=== PATIENT | male | born 1945 | race Caucasian/White ===

== ENCOUNTER 2020-10-25 11:03 | Inpatient (IN) | payer MEDICARE ==
[~2020-10-25] VITALS: Ht 172.7 cm; Wt 72.6 kg
--- NOTE | 2020-10-25 11:18 | NUR ---
pt newly started on 5 different medication to be completed in a course of time, but unable to provided more details at this point.
[2020-10-25] MEDS ORDERED: ALLO300T2 PO (11:20)
[2020-10-25] MEDS ORDERED: AMLO10TA59 PO (11:20)
--- NOTE | 2020-10-25 11:21 | NUR ---
CALLED DR. NAOMI OCHOA OFFICE, , PER PT REQUEST TO GET THE MEDS LIST. THE CORPORATE STRATEGY ANALYST SAID THAT SHE WILL FAX THE LIST, WILL UPDATE THE MED RECONCILIATION ONCE RECIEVE THE LIST.
[2020-10-25] MEDS ORDERED: ONDANSETRON 4 MG/2 ML VIAL ONE (11:28)
[2020-10-25] MEDS ORDERED: HYDROMORPHONE 1 MG/1 ML DISP.SYRIN ONE (11:28)
[2020-10-25] MEDS ORDERED: ONDANSETRON 4 MG/2 ML VIAL IV ONE (11:30)
[2020-10-25] MEDS ORDERED: HYDROMORPHONE 1 MG/1 ML DISP.SYRIN IV ONE (11:30)
[2020-10-25] MEDS ORDERED: IV NORMAL SALINE 1000 ML BAG IV ONE (11:30)
[2020-10-25 11:43] LABS: HEMATOCRIT 25.8 % (36.7-47.1); MEAN CORPUSCULAR HEMOGLOBIN 29.8 uug (23.8-33.4); MEAN CORPUSCULAR VOLUME 94.5 fL (73.0-96.2); PLATELET COUNT (AUTO) 270 K/uL (152-348)
[2020-10-25 11:56] LABS: ALKALINE PHOSPHATASE 110 U/L (50-136); ASPARTATE AMINOTRANSFERASE 17 U/L (15-37); BILIRUBIN,DIRECT 0.3 mg/dL (0.0-0.2); BILIRUBIN,TOTAL 0.6 mg/dL (0.2-1.0); CARBON DIOXIDE 15 mmol/L (21-32); CHLORIDE 109 mmol/L (98-107); CREATININE 1.7 mg/dL (0.6-1.3); GLUCOSE 108 mg/dL (74-106); LIPASE 154 U/L (73-393); TOTAL PROTEIN, SERUM 5.7 g/dL (6.4-8.2); UREA NITROGEN, BLOOD 41 mg/dL (7-18)
--- NOTE | 2020-10-25 12:06 | NUR ---
Patient is resting comfortably on gurney with eyes closed. PATIENT IS PAIN FREE AT THIS TIME.
[2020-10-25 12:09] LABS: ALANINE AMINOTRANSFERASE < 6 U/L (16-63)
[2020-10-25] MEDS ORDERED: CALCIUM GLUCONATE IV 1 GM in IV NORMAL SALINE 100 ML IV ONE (12:15)
--- NOTE | 2020-10-25 12:35 | NUR ---
Patient denies being homeless. New shirt provided per patient's request.
--- NOTE | 2020-10-25 12:37 | NUR ---
Pending callback from FATOU Linares for SBAR. Patient is admitted to 3rd floor telemetry room 310, under the care of Dr. Phillips. Belongings list completed.
[2020-10-25] MEDS ORDERED: ACETAMINOPHEN 325 MG TABLET PO PRN (13:15)
[2020-10-25] MEDS ORDERED: MAGNESIUM HYDROXIDE 30 ML LIQUID UDC PO PRN ×2 (13:15→13:30)
[2020-10-25] MEDS ORDERED: ONDANSETRON 4 MG/2 ML VIAL IV PRN ×2 (13:15→13:30)
[2020-10-25] MEDS ORDERED: IV 1/2NS 1000 ML 1,000 ML IV SCH (13:15)
[2020-10-25] MEDS ORDERED: Z GUARD REMEDY PASTE 57 GM TUBE TOP PRN (13:15)
--- NOTE | 2020-10-25 13:45 | NUR ---
ADMITTED FROM ER A 75 YO MALE WITH ADM DX OF HYCALEMIA AWAKE ALERT AND ORIENTED X3 WITH SLIGHT SOB ON EXERTION, MILD GENERALIZED PAIN. ROUTINE ADM ASSESSMENT INITIATED. DR LICEA MADE AWARE OF ADM STATUS WITH ORDERS. LUNCH SERVED ABLE TO CONSUME 100% OF FOOD
[2020-10-25 13:51] VITALS: BP 120/52
[2020-10-25] MEDS: IV 1/2NS 1000 ML 1,000 ML IV SCH ×2 (13:56→23:12)
[2020-10-25 15:30] VITALS: BP 121/60
[2020-10-25 18:39] LABS: *BLOOD, URINE NEGATIVE (NEGATIVE); *CLARITY,URINE CLEAR (CLEAR); *COLOR,URINE YELLOW (YELLOW); *KETONES,URINE NEGATIVE (NEGATIVE); *UROBILINOGEN,URINE 0.2 E.U./dl (NORMAL); LEUKOCYTE ESTERASE ,URINE NEGATIVE (NEGATIVE); NITRITE, URINE NEGATIVE (NEGATIVE); PH,URINE 5.5 (5.0-8.0); UGLUCOSE NEGATIVE (NEGATIVE)
[2020-10-25 18:41] LABS: *BILIRUBIN,URIN 1+ (NEGATIVE)
[2020-10-25 18:50] LABS: BACTERIA,URINE NONE SEEN /HPF (NONE SEEN); RBC,URINE 0-3 /HPF (0-3); SQUAMOUS EPITHELIAL CELL,UR NONE SEEN /HPF (NONE SEEN); URINE AMORPHOUS URATE FEW /HPF; WBC,URINE 0-3 /HPF (0-3)
--- NOTE | 2020-10-25 19:00 | NUR ---
Patient report received. Patient is alert and oriented x 3-4. No complaints of pain at this time. Skin is intact, no signs of breakdown at this time. Patient is on TELE, sinus rhythm at this time. Stated that he has shortness of breath when transferring but not on rest. Oxygen saturation between 92-94% on 2L NC. Patient is continent. Left forearm 20g running 1/2 NS at 100cc/hr. No signs of distress at this time. Bed in low and locked position. Call light within reach.
[2020-10-25 20:24] VITALS: BP 115/58
[2020-10-25] MEDS: ACETAMINOPHEN 325 MG TABLET PO PRN (20:43)
[2020-10-26 00:04] VITALS: BP 120/58
[2020-10-26 04:20] VITALS: BP 137/67
--- NOTE | 2020-10-26 05:59 | NUR ---
Patient slept intermittently. Awake, alert and oriented x 4. Patient complained of shortness of breath in the morning. Assisted the patient into high fowlers position, and increased oxygen to 3L. Patient stated relief of SOB. No other complaints noted. Patient denies any pain at this time. Medications given as ordered. Bed in low and locked position. Call light within reach.
[2020-10-26] MEDS: PANTOPRAZOLE SODIUM 40 MG TABLET.DR PO SCH (06:19)
[2020-10-26] MEDS ORDERED: PANTOPRAZOLE SODIUM 40 MG TABLET.DR PO SCH (07:00)
[2020-10-26] MEDS: IV 1/2NS 1000 ML 1,000 ML IV SCH ×2 (08:51→20:07)
[2020-10-26 10:34] LABS: *BILIRUBIN,URIN NEGATIVE (NEGATIVE); *BLOOD, URINE NEGATIVE (NEGATIVE); *CLARITY,URINE CLEAR (CLEAR); *COLOR,URINE YELLOW (YELLOW); *KETONES,URINE NEGATIVE (NEGATIVE); LEUKOCYTE ESTERASE ,URINE NEGATIVE (NEGATIVE); NITRITE, URINE NEGATIVE (NEGATIVE); PH,URINE 5.5 (5.0-8.0); UGLUCOSE NEGATIVE (NEGATIVE)
[2020-10-26 10:46] LABS: *CREATININE,URINE 79.8 mg/dL (30-125); *URINE TOTAL PROTEIN RANDOM 40.8 mg/dL (<150/24HR)
[2020-10-26] MEDS: HYDROCODONE/APAP 5-325MG TABLET PO PRN ×2 (11:55→22:32)
[2020-10-26 12:00] VITALS: BP 131/68
[2020-10-26 14:03] LABS: BACTERIA,URINE NONE SEEN /HPF (NONE SEEN); RBC,URINE 0-3 /HPF (0-3); SQUAMOUS EPITHELIAL CELL,UR FEW /HPF (NONE SEEN); URINE AMORPHOUS URATE FEW /HPF; WBC,URINE 0-3 /HPF (0-3)
[2020-10-26 16:01] VITALS: BP 138/73
--- NOTE | 2020-10-26 20:00 | NUR ---
RECEIVED PATIENT AWAKE IN BED. A/O X4. ON O2 3L NC SATING 97%. NO RESP.DISTRESS NOTED. DENIES ANY PAIN AT THIS TIME. IVF INFUSING WELL TO LEFT FA. BED ALARM ON. CALL LIGHT IN REACH. ALL NEEDS ATTENDED.
[2020-10-26 20:05] VITALS: BP 134/69
--- NOTE | 2020-10-26 22:30 | NUR ---
PATIENT AWAKE IN BED. VERY SOB. CALLED OUT TO WOOD FINISHER APPRENTICE COOLER MAN FOR FURTHER ORDERS. PATIENT GIVEN BREATHING TX.
[2020-10-26] MEDS: ALBUTEROL SULFATE 2.5 MG/3 ML NEBU NEB PRN (23:11)
[2020-10-27] VITALS: BP 122/64
[2020-10-27] MEDS ORDERED: methylPREDNISolone SOD SUCC 40 MG/ML VIAL IV ONE (02:15)
--- NOTE | 2020-10-27 02:30 | NUR ---
CALLED OUT TO LEVI ZAMORA NP TO INFORM THAT PATIENT IS UNABLE TO URINATE AND RECEIVED 293cc OF URINE. PATIENT IS SOB AND APPEARS UNCOMFORTABLE. RECEIVED ORDER FOR INSERTION OF F/C AND SOLU-MEDROL IVP. ALL NEEDS ATTENDED. WILL CONTINUE TO MONITOR.
[2020-10-27] MEDS: IV 1/2NS 1000 ML 1,000 ML IV PRN (02:59)
--- NOTE | 2020-10-27 03:35 | NUR ---
LUIS ARMANDO SIMS NOTIFIED THAT MATTA CATHETER IS UNABLE TO BE INSERTED. GIRLS TENNIS COACH AT BEDSIDE TO ATTEMPT CAUDE ORDERED. RESISTANCE NOTED. RECEIVED ORDER TO HAVE DAY SHIFT NOTIFY LUIS ARMANDO JACKSON TO CALL UROLOGIST COME TO INSERT MATTA. WILL CONTINUE TO MONITOR AND ASSESS.
[2020-10-27 04:00] VITALS: BP 145/76
--- NOTE | 2020-10-27 04:50 | NUR ---
PATIENT AWAKE IN BED. URINATED BY HIMSELF. LARGE AMOUNT OF URINE NOTED IN BED AND PATIENT URINATED IN URINAL. ALL NEEDS ATTENDED. WILL CONTINUE TO MONITOR AND ASSESS.
[2020-10-27] MEDS: PANTOPRAZOLE SODIUM 40 MG TABLET.DR PO SCH (06:06)
--- NOTE | 2020-10-27 06:48 | NUR ---
PATIENT ON SR.
[2020-10-27 06:51] LABS: HEMATOCRIT 27.1 % (36.7-47.1); MEAN CORPUSCULAR HEMOGLOBIN 30.2 uug (23.8-33.4); MEAN CORPUSCULAR VOLUME 95.2 fL (73.0-96.2); PLATELET COUNT (AUTO) 270 K/uL (152-348)
[2020-10-27 06:53] LABS: ALKALINE PHOSPHATASE 130 U/L (50-136); ASPARTATE AMINOTRANSFERASE 21 U/L (15-37); BILIRUBIN,TOTAL 0.7 mg/dL (0.2-1.0); CARBON DIOXIDE 11 mmol/L (21-32); CHLORIDE 106 mmol/L (98-107); CREATINE KINASE, TOTAL 88 U/L (39-308); CREATININE 1.4 mg/dL (0.6-1.3); GLUCOSE 87 mg/dL (74-106); MAGNESIUM 1.8 mg/dL (1.8-2.4); PHOSPHOROUS 2.4 mg/dL (2.5-4.9); UREA NITROGEN, BLOOD 33 mg/dL (7-18)
[2020-10-27 07:04] LABS: ALANINE AMINOTRANSFERASE < 6 U/L (16-63)
--- NOTE | 2020-10-27 07:41 | NUR ---
pt calcium level is 5.4 reported by lab made aware
[2020-10-27 07:57] VITALS: BP 141/71
[2020-10-27] MEDS: CALCIUM CARBONATE 500 MG TABLET PO SCH ×2 (09:30→21:18)
[2020-10-27] MEDS: CALCITRIOL 0.25 MCG CAPSULE PO SCH (10:11)
[2020-10-27] MEDS: ALBUTEROL SULFATE 2.5 MG/3 ML NEBU NEB PRN (10:23)
[2020-10-27 12:51] VITALS: BP 138/64
[2020-10-27] MEDS ORDERED: NEUTRA PHOS PACKET PO ONE (15:30)
[2020-10-27 16:00] VITALS: BP 134/74
[2020-10-27] MEDS: ALBUTEROL SULFATE 2.5 MG/3 ML NEBU NEB SCH ×2 (17:46→22:33)
[2020-10-27] MEDS: methylPREDNISolone SOD SUCC 125 MG/2 ML VIAL IV SCH ×2 (17:49→21:28)
--- NOTE | 2020-10-27 19:30 | NUR ---
Received pt in bed, awake and verbally responsive. Denies pain or discomfort. On oxygen at 3LPM, saturating 98%. IVF infusing well on left forearm. Safety measures initiated, call light within reach.
[2020-10-27 20:00] VITALS: BP 120/53
[2020-10-28] VITALS: BP 142/67
[2020-10-28] MEDS: IV 1/2NS 1000 ML 1,000 ML IV PRN ×2 (00:02→22:39)
[2020-10-28] MEDS: ACETAMINOPHEN 325 MG TABLET PO PRN ×2 (00:06→19:49)
[2020-10-28] MEDS: ALBUTEROL SULFATE 2.5 MG/3 ML NEBU NEB SCH ×6 (02:54→23:15)
--- NOTE | 2020-10-28 03:10 | NUR ---
Pt has a urine output of 100 ml only and has wheezing on bilateral lungs. Repositioning done as needed, scheduled breathing treatment administered by RT. Pt still wheezing. Notified Dian Boyd NP of pt's condition. Received new orders: Administer 0600 am dose of Solumedrol 60mg IVP now and hold 060 am dose, chest xray at 0700 and a pulmonary consult. Orders carried out. will continue to monitor. Addendum: 10/28/20 at 0346 by ZOYA DIAMOND RN Additional information: Bladder scan done as well, showed 139 ml. Notified Oliver prior to receiving new orders.
[2020-10-28] MEDS: methylPREDNISolone SOD SUCC 125 MG/2 ML VIAL IV SCH ×3 (03:23→21:00)
[2020-10-28 04:00] VITALS: BP 138/69
[2020-10-28] MEDS: PANTOPRAZOLE SODIUM 40 MG TABLET.DR PO SCH (06:06)
--- NOTE | 2020-10-28 07:10 | NUR ---
Tolerated medications well. Still wheezing on bilateral lungs. Endorsed to day shift nurse regarding new orders: chest xray, pulmonary and urology consult. Safety measures maintained at all times. All needs attended and met.
[2020-10-28 07:19] LABS: HEMATOCRIT 27.2 % (36.7-47.1); MEAN CORPUSCULAR HEMOGLOBIN 30.2 uug (23.8-33.4); MEAN CORPUSCULAR VOLUME 99.3 fL (73.0-96.2); PLATELET COUNT (AUTO) 301 K/uL (152-348)
[2020-10-28 07:44] LABS: ALANINE AMINOTRANSFERASE 7 U/L (16-63); ALKALINE PHOSPHATASE 134 U/L (50-136); ASPARTATE AMINOTRANSFERASE 16 U/L (15-37); BILIRUBIN,TOTAL 0.4 mg/dL (0.2-1.0); CARBON DIOXIDE 13 mmol/L (21-32); CHLORIDE 107 mmol/L (98-107); CREATINE KINASE, TOTAL 91 U/L (39-308); CREATININE 1.7 mg/dL (0.6-1.3); GLUCOSE 170 mg/dL (74-106); MAGNESIUM 2.1 mg/dL (1.8-2.4); PHOSPHOROUS 3.8 mg/dL (2.5-4.9); POTASSIUM 5.6 mmol/L (3.5-5.1); TOTAL PROTEIN, SERUM 6.2 g/dL (6.4-8.2)
[2020-10-28 07:54] LABS: UREA NITROGEN, BLOOD 40 mg/dL (7-18)
[2020-10-28] MEDS: CALCIUM CARBONATE 500 MG TABLET PO SCH ×2 (08:09→20:01)
[2020-10-28] MEDS: CALCITRIOL 0.25 MCG CAPSULE PO SCH (08:09)
[2020-10-28] MEDS ORDERED: FUROSEMIDE 40 MG/4 ML VIAL IV ONE (09:30)
[2020-10-28] MEDS ORDERED: SODIUM POLYSTYRENE SULFONATE 15 G/60 ML LIQUID UDC PO ONE (09:30)
--- NOTE | 2020-10-28 09:40 | NUR ---
pt is unable to urinate .bladder scan done it show 265 ml urine his hr went up to 133 md notified and recheck his vs are 98 temp pulse is 133 resp 24 and o2% is 95 on 3 l nc
[2020-10-28 09:51] VITALS: BP 137/76
[2020-10-28] MEDS ORDERED: CALCIUM GLUCONATE IV 1 GM in IV NORMAL SALINE 100 ML IV ONE (10:00)
[2020-10-28] MEDS ORDERED: levoFLOXacin 750MG/D5W 750 MG in PREMIXED 1 EACH IV SCH (12:00)
[2020-10-28 12:18] VITALS: BP 140/70
--- NOTE | 2020-10-28 12:40 | NUR ---
THORACENTESIS DONE PT TOLERATED THE PROCEDURE WELL
--- NOTE | 2020-10-28 15:00 | NUR ---
pt calcium level is 5.3 reported by lab notified about the critical lab
[2020-10-28 15:05] LABS: CARBON DIOXIDE 16 mmol/L (21-32); CHLORIDE 109 mmol/L (98-107); CREATININE 1.7 mg/dL (0.6-1.3); GLUCOSE 204 mg/dL (74-106); UREA NITROGEN, BLOOD 40 mg/dL (7-18)
[2020-10-28 16:46] VITALS: BP 107/55
[2020-10-28 20:06] VITALS: BP_SYST 118; BP_SYST 121; BP_SYST 136; BP_DIAS 49; BP_DIAS 64; BP_DIAS 66
[2020-10-28] MEDS: TAMSULOSIN HCL 0.4 MG CAP.SR.24H PO SCH (20:58)
[2020-10-28] MEDS: FINASTERIDE 5 MG TABLET PO SCH (20:58)
[2020-10-29 00:03] VITALS: BP 130/58
[2020-10-29] MEDS: ALBUTEROL SULFATE 2.5 MG/3 ML NEBU NEB SCH ×3 (03:34→11:11)
[2020-10-29 04:06] VITALS: BP 126/63
[2020-10-29] MEDS: methylPREDNISolone SOD SUCC 125 MG/2 ML VIAL IV SCH ×3 (05:01→21:26)
[2020-10-29] MEDS: PANTOPRAZOLE SODIUM 40 MG TABLET.DR PO SCH (06:06)
[2020-10-29 06:53] LABS: ALANINE AMINOTRANSFERASE 6 U/L (16-63); ALKALINE PHOSPHATASE 124 U/L (50-136); ASPARTATE AMINOTRANSFERASE 19 U/L (15-37); BILIRUBIN,TOTAL 0.4 mg/dL (0.2-1.0); CARBON DIOXIDE 18 mmol/L (21-32); CHLORIDE 107 mmol/L (98-107); CREATININE 1.5 mg/dL (0.6-1.3); GLUCOSE 210 mg/dL (74-106); HEMATOCRIT 23.4 % (36.7-47.1); MAGNESIUM 1.6 mg/dL (1.8-2.4); MEAN CORPUSCULAR HEMOGLOBIN 30.6 uug (23.8-33.4); MEAN CORPUSCULAR VOLUME 96.3 fL (73.0-96.2); PHOSPHOROUS 2.6 mg/dL (2.5-4.9); PLATELET COUNT (AUTO) 235 K/uL (152-348); POTASSIUM 3.8 mmol/L (3.5-5.1); TOTAL PROTEIN, SERUM 5.5 g/dL (6.4-8.2); UREA NITROGEN, BLOOD 33 mg/dL (7-18)
--- NOTE | 2020-10-29 07:20 | NUR ---
CALCIUM LEVEL IS 5.[address] LICEA NOTIFIED WITH NO NEW ORDERS AT THIS TIME.
--- NOTE | 2020-10-29 07:30 | NUR ---
RECEIVED PATIENT IN BED AWAKE ALERT BUT IS SOMEWHAT FORGETFUL WILL ASK FOR ASSISTANCE BUT WILL NOT KNOW WHAT HE NEEDS EXACTLY REPOSITIONED FOR COMFORT IVF OF NS IS IN PROGRESS AT 50 ML/HR WITH NO S/S OF INFILTERATION ON SITE O2 AT 3L/M BY NASAL CANULA WITH NO SOB AT THIS TIME CALL LIGHTS AND PERSONAL BELONGINGS ARE WITHIN EASY REACH WILL CONTINUE TO OBSERVE.
[2020-10-29] MEDS: FINASTERIDE 5 MG TABLET PO SCH (08:27)
[2020-10-29] MEDS: CALCIUM CARBONATE 500 MG TABLET PO SCH ×2 (08:27→20:22)
[2020-10-29] MEDS: CALCITRIOL 0.25 MCG CAPSULE PO SCH (08:28)
[2020-10-29] MEDS: HYDROCODONE/APAP 5-325MG TABLET PO PRN (08:57)
--- NOTE | 2020-10-29 08:57 | NUR ---
PHYSICAL THERAPIST HERE TO SEE PATIENT AND PATIENT STATED THAT HE HAS GENERALISED PAIN SO PATIENT MEDICATED WITH NORCO ORDERED THERAPIST STATED WILL BE HERE IN A LITTLE WHILE FOR TREATMENT.
--- NOTE | 2020-10-29 08:58 | NUR ---
PATIENT SEEN AND EXAMINE BY PEN TENDER DR PALOMINO WITH ORDER TO START PATIENT DENI KELLY RN NOTIFIED RATE IS IN A FIB AT THIS TIME RATE AT 144
[2020-10-29 09:00] VITALS: BP 128/76
[2020-10-29] MEDS ORDERED: DILTIAZEM HCL 25 MG IV IV ONE (09:00)
[2020-10-29] MEDS ORDERED: AMIODARONE HCL IV 150 MG in IV DEXTROSE 5% 100 ML IV ONE (09:00)
[2020-10-29] MEDS ORDERED: AMLODIPINE 10 MG TABLET PO SCH (09:00)
[2020-10-29 09:06] LABS: A/G RATIO 0.8 (0.7-1.7); ALBUMIN 2.4 g/dL (2.9-4.4); ALPHA-1-GLOBULIN 0.4 g/dL (0.0-0.4); ALPHA-2-GLOBULIN 1.2 g/dL (0.4-1.0); BETA GLOBULIN 0.8 g/dL (0.7-1.3); GAMMA GLOBULIN 0.7 g/dL (0.4-1.8); GLOBULIN, TOTAL 3.1 g/dL (2.2-3.9); M-SPIKE Not Observed g/dL (Not Observed)
[2020-10-29] MEDS ORDERED: MAGNESIUM SULFATE/D5W 100 ML IV SCH (09:15)
--- NOTE | 2020-10-29 10:00 | NUR ---
PATIENT REASSIGNMENT CARE OF PATIENT ENDORSED TO THE PUNEET RN BECAUSE PATIENT STATUS HAS CHANGED TO TELE TD DUR TO THE AMIODARONE DRIP ORDERED.
--- NOTE | 2020-10-29 10:30 | NUR ---
RECEIVED REPORT FROM MED SURG NURSE. VIRA. PT IN BED, AWAKE, ALERT AND ORIENTED X 4 BUT CAN BE FORGETFUL. EASILY REDIRECTED. NURSE IDENTIFIED PT BY NAME, BIRTHDAY, AND MEDICAL RECORD. NURSE INTRODUCED SELF AND ADDRESSED ALL PT NEEDS. PT CHANGED TO PUNEET STATUS D/T A.FIB ON MONITOR. PER NURSE REPORT, DR. HESTER SAW PT AND ORDERED MEDICATIONS. ADMINISTERED MEDICATIONS PER PHYSICIAN'S ORDERS. VITAL SIGNS DONE EVERY 10 MINS FOR 1 HOUR. NO SIGNS OF DISTRESS OR SOB NOTED. PT ABLE TO MAKE NEEDS KNOWN. WILL CONTINUE TO MONITOR.
[2020-10-29 11:43] VITALS: BP 118/70
[2020-10-29] MEDS: AMIODARONE HCL IV 450 MG in IV DEXTROSE 5% 250 ML IV PRN ×2 (13:10→21:54)
[2020-10-29] MEDS: IPRATROPIUM BROMIDE 0.5 MG/2.5 ML NEBU NEB SCH ×2 (14:01→19:11)
[2020-10-29 17:56] VITALS: BP 110/69
--- NOTE | 2020-10-29 19:10 | NUR ---
PT IN BED, AWAKE, ALERT AND ORIENTED X 4 BUT CAN BE FORGETFUL. EASILY REDIRECTED. NURSE IDENTIFIED PT BY NAME, BIRTHDAY, AND MEDICAL RECORD. NO SIGNS OF DISTRESS OR SOB NOTED. PT ABLE TO MAKE NEEDS KNOWN. PT STILL ON AMIODARONE DRIP, TITRATED PER PHYSICIAN'S ORDERS. VITAL SIGNS WNL. HEART RATE STILL ELEVATED. NO COMPLAIN OF PAIN NOTED. NURSE ADDRESSED ALL PATIENT NEEDS. GAVE REPORT TO MED SURG NURSE.
[2020-10-29 20:00] VITALS: BP 148/76
[2020-10-29] MEDS: MEROPENEM 1 G in IV NORMAL SALINE 100 ML IV SCH (20:20)
[2020-10-29] MEDS: TAMSULOSIN HCL 0.4 MG CAP.SR.24H PO SCH (20:22)
[2020-10-29] MEDS: ACETAMINOPHEN 325 MG TABLET PO PRN (22:09)
[2020-10-30 00:34] VITALS: BP 136/59
[2020-10-30] MEDS: IPRATROPIUM BROMIDE 0.5 MG/2.5 ML NEBU NEB SCH ×4 (00:36→19:44)
[2020-10-30 05:00] VITALS: BP 120/69
[2020-10-30] MEDS: methylPREDNISolone SOD SUCC 125 MG/2 ML VIAL IV SCH ×2 (05:09→13:16)
[2020-10-30] MEDS: PANTOPRAZOLE SODIUM 40 MG TABLET.DR PO SCH (06:15)
[2020-10-30] MEDS: IV 1/2NS 1000 ML 1,000 ML IV PRN (06:32)
[2020-10-30 07:14] LABS: HEMATOCRIT 22.3 % (36.7-47.1)
[2020-10-30 07:16] LABS: CARBON DIOXIDE 21 mmol/L (21-32); CHLORIDE 105 mmol/L (98-107); CREATININE 1.4 mg/dL (0.6-1.3); GLUCOSE 227 mg/dL (74-106); MAGNESIUM 1.8 mg/dL (1.8-2.4); MEAN CORPUSCULAR HEMOGLOBIN 29.9 uug (23.8-33.4); MEAN CORPUSCULAR VOLUME 92.8 fL (73.0-96.2); PHOSPHOROUS 1.9 mg/dL (2.5-4.9); PLATELET COUNT (AUTO) 203 K/uL (152-348); POTASSIUM 3.4 mmol/L (3.5-5.1); UREA NITROGEN, BLOOD 29 mg/dL (7-18)
[2020-10-30] MEDS: LEVALBUTEROL HCL NEB 0.63 MG/3 ML NEBU NEB PRN ×3 (07:21→19:43)
--- NOTE | 2020-10-30 07:36 | NUR ---
Awake, alert, oriented x 4. O2 at 3L/NC, with HHN treatment. Amiodarone drip at 0.5 mg/hr. Tele ST 102
[2020-10-30 08:00] VITALS: BP 135/62
--- NOTE | 2020-10-30 08:30 | NUR ---
Tele SR. Amiodarone drip discontinued.
[2020-10-30] MEDS: MEROPENEM 1 G in IV NORMAL SALINE 100 ML IV SCH ×2 (08:40→20:36)
[2020-10-30] MEDS: DILTIAZEM HCL CD 120 MG CAP.SR.24H PO SCH (08:41)
[2020-10-30] MEDS: FINASTERIDE 5 MG TABLET PO SCH (08:42)
[2020-10-30] MEDS: AMIODARONE HCL 200 MG TABLET PO SCH ×2 (08:42→20:31)
[2020-10-30] MEDS: CALCITRIOL 0.25 MCG CAPSULE PO SCH (08:42)
[2020-10-30] MEDS: CALCIUM CARBONATE 500 MG TABLET PO SCH ×2 (08:42→20:30)
[2020-10-30] MEDS: POTASSIUM PHOSPHATE MM 7.5 MMOL in IV NORMAL SALINE 97.5 ML IV SCH ×2 (10:41→13:13)
[2020-10-30] MEDS ORDERED: CALCIUM GLUCONATE IV 1 GM in IV NORMAL SALINE 100 ML IV ONE (11:30)
[2020-10-30 12:00] VITALS: BP 136/74
[2020-10-30] MEDS ORDERED: levoFLOXacin 750MG/D5W 750 MG in PREMIXED 1 EACH IV SCH (12:00)
--- NOTE | 2020-10-30 13:15 | NUR ---
Ca 5.4, calcium gluconate IV given as ordered
[2020-10-30] MEDS: HYDROCODONE/APAP 5-325MG TABLET PO PRN ×2 (13:26→20:46)
--- NOTE | 2020-10-30 14:00 | NUR ---
PT at bedside, only able to do exercises in bed. Reports of pain even with premedication of Fonda
[2020-10-30 15:34] VITALS: BP 135/66
[2020-10-30] MEDS: ENSURE ENLIVE (VAN) 240 ML LIQUID PO SCH (17:18)
[2020-10-30 17:49] LABS: IRON, SERUM 85 ug/dL (50-175)
--- NOTE | 2020-10-30 18:00 | NUR ---
O2 at 2.5L/NC, on moderate high back rest. Resting comfortably. Tele ST 105
[2020-10-30 18:24] LABS: FERRITIN 3176 ng/mL (26-388)
[2020-10-30 20:11] VITALS: BP 102/67
[2020-10-30] MEDS: TAMSULOSIN HCL 0.4 MG CAP.SR.24H PO SCH (20:30)
--- NOTE | 2020-10-30 20:46 | NUR ---
IN BED AWAKE ALERT AND ORIENTED ON OE AT 2.5 LITERS WITH NO SHORTNESS OF BREATH AT THIS KAI HAND HELD NEBULIZER IS IN PROGRESS ORDERED AND HELPFUL WITH HIS SOB.NOTED WITH BILATERAL HAND TREMORS TELE WITH SR-ST C/O BACK PAIN MEDICATED WITH NORCO ORDERED CALL LIGHTS AND PERSONAL BELONGINGS ARE WITHIN EASY REACH MADE COMFORTABLE AND WILL CONTINUE TO OBSERVE.
[2020-10-30] MEDS: methylPREDNISolone SOD SUCC 40 MG/ML VIAL IV SCH (21:58)
[2020-10-30] MEDS: ENSURE WITH FIBER 237 ML LIQUID (CHOCOLATE) PO SCH (22:00)
[2020-10-31 00:28] VITALS: BP 126/68
[2020-10-31] MEDS: IPRATROPIUM BROMIDE 0.5 MG/2.5 ML NEBU NEB SCH ×4 (02:12→18:58)
[2020-10-31] MEDS: LEVALBUTEROL HCL NEB 0.63 MG/3 ML NEBU NEB PRN ×3 (02:12→13:34)
[2020-10-31 04:40] VITALS: BP 123/71
[2020-10-31] MEDS: ENSURE WITH FIBER 237 ML LIQUID (CHOCOLATE) PO SCH ×3 (06:00→21:30)
[2020-10-31] MEDS: PANTOPRAZOLE SODIUM 40 MG TABLET.DR PO SCH (06:07)
[2020-10-31] MEDS: methylPREDNISolone SOD SUCC 40 MG/ML VIAL IV SCH ×3 (06:07→21:29)
--- NOTE | 2020-10-31 06:41 | NUR ---
RECEIVED A CALL FROM THE LAB [facility] L[facility]EL IS 46 CALLED AND SPOKE WITH CARMEN WITH NO NEW ORDERS AT THIS TIME. Addendum: 10/31/20 at 0652 by VIRA RANGEL RN ERROR WRONG PATIENT
--- NOTE | 2020-10-31 06:53 | NUR ---
PATIENT SEEN BY DR SUAREZ WITH NEW ORDERS AND NOTED
[2020-10-31 07:23] LABS: HEMATOCRIT 23.6 % (36.7-47.1); MEAN CORPUSCULAR HEMOGLOBIN 30.2 uug (23.8-33.4); PLATELET COUNT (AUTO) 180 K/uL (152-348)
[2020-10-31 07:26] LABS: CREATININE 1.3 mg/dL (0.6-1.3); PHOSPHOROUS 1.9 mg/dL (2.5-4.9)
[2020-10-31] MEDS ORDERED: CALCITRIOL 0.25 MCG CAPSULE PO SCH (09:00)
[2020-10-31] MEDS: CALCIUM CARBONATE 500 MG TABLET PO SCH ×2 (09:47→21:17)
[2020-10-31] MEDS: FINASTERIDE 5 MG TABLET PO SCH (09:52)
[2020-10-31] MEDS: MEROPENEM 1 G in IV NORMAL SALINE 100 ML IV SCH ×2 (09:52→21:19)
[2020-10-31] MEDS: DILTIAZEM HCL CD 120 MG CAP.SR.24H PO SCH (09:52)
[2020-10-31] MEDS: ENSURE ENLIVE (VAN) 240 ML LIQUID PO SCH ×3 (09:58→16:22)
[2020-10-31] MEDS: AMIODARONE HCL 200 MG TABLET PO SCH ×2 (09:59→21:18)
[2020-10-31] MEDS ORDERED: CALCITRIOL 0.25 MCG CAPSULE PO ONE ×2 (11:00→17:00)
[2020-10-31 11:39] VITALS: BP 135/75
[2020-10-31] MEDS ORDERED: NEUTRA PHOS PACKET PO ONE (15:15)
[2020-10-31 16:41] VITALS: BP 121/80
[2020-10-31 20:04] VITALS: BP 122/71
[2020-10-31] MEDS: TAMSULOSIN HCL 0.4 MG CAP.SR.24H PO SCH (21:18)
[2020-11-01] MEDS: IPRATROPIUM BROMIDE 0.5 MG/2.5 ML NEBU NEB SCH ×4 (00:43→19:48)
[2020-11-01 04:00] VITALS: BP 130/70
[2020-11-01 04:05] VITALS: BP 130/70
[2020-11-01] MEDS: methylPREDNISolone SOD SUCC 40 MG/ML VIAL IV SCH ×2 (05:48→21:12)
[2020-11-01] MEDS: ENSURE WITH FIBER 237 ML LIQUID (CHOCOLATE) PO SCH ×3 (05:49→21:35)
[2020-11-01] MEDS: PANTOPRAZOLE SODIUM 40 MG TABLET.DR PO SCH (06:09)
--- NOTE | 2020-11-01 06:16 | NUR ---
Shift End Report: Vs stable. Continue on IV antibiotics of Merrem without s/s of adverse reaction noted. No complaint of pain presented. Slept good. No significant event reported all night. All needs attended and met. Continue care as planned.
[2020-11-01 07:14] LABS: HEMATOCRIT 25.6 % (36.7-47.1); MEAN CORPUSCULAR HEMOGLOBIN 29.4 uug (23.8-33.4); MEAN CORPUSCULAR VOLUME 93.4 fL (73.0-96.2)
[2020-11-01 07:15] LABS: PLATELET COUNT (AUTO) 168 K/uL (152-348)
[2020-11-01 07:30] LABS: BILIRUBIN,TOTAL 0.5 mg/dL (0.2-1.0); CREATININE 1.3 mg/dL (0.6-1.3); MAGNESIUM 1.9 mg/dL (1.8-2.4); PHOSPHOROUS 2.4 mg/dL (2.5-4.9); POTASSIUM 4.4 mmol/L (3.5-5.1); TOTAL PROTEIN, SERUM 5.3 g/dL (6.4-8.2)
[2020-11-01] MEDS: LEVALBUTEROL HCL NEB 0.63 MG/3 ML NEBU NEB PRN ×2 (07:53→13:51)
[2020-11-01 08:06] LABS: *IMMUNOGLOBULIN G, SERUM 596 mg/dL (603-1613); IMMUNOGLOBULIN A, SERUM 386 mg/dL (61-437); IMMUNOGLOBULIN M, SERUM 60 mg/dL (15-143)
[2020-11-01] MEDS: CALCIUM CARBONATE 500 MG TABLET PO SCH ×2 (08:43→21:14)
[2020-11-01] MEDS: ACETAMINOPHEN 325 MG TABLET PO PRN (08:43)
[2020-11-01] MEDS: DILTIAZEM HCL CD 120 MG CAP.SR.24H PO SCH (08:44)
[2020-11-01] MEDS: ENSURE ENLIVE (VAN) 240 ML LIQUID PO SCH ×3 (08:44→17:02)
[2020-11-01] MEDS: AMIODARONE HCL 200 MG TABLET PO SCH ×2 (08:44→21:15)
[2020-11-01] MEDS: FINASTERIDE 5 MG TABLET PO SCH (08:44)
[2020-11-01] MEDS: CALCITRIOL 0.25 MCG CAPSULE PO SCH ×2 (08:45→17:02)
[2020-11-01] MEDS: MEROPENEM 1 G in IV NORMAL SALINE 100 ML IV SCH ×2 (10:48→21:05)
[2020-11-01 11:56] VITALS: BP 123/71
[2020-11-01 14:06] LABS: A/G RATIO 0.8 (0.7-1.7); ALBUMIN 2.2 g/dL (2.9-4.4); ALPHA-1-GLOBULIN 0.3 g/dL (0.0-0.4); ALPHA-2-GLOBULIN 1.2 g/dL (0.4-1.0); BETA GLOBULIN 0.6 g/dL (0.7-1.3); GAMMA GLOBULIN 0.7 g/dL (0.4-1.8); GLOBULIN, TOTAL 2.7 g/dL (2.2-3.9); M-SPIKE Not Observed g/dL (Not Observed)
[2020-11-01 16:00] VITALS: BP 125/59
[2020-11-01] MEDS ORDERED: NEUTRA PHOS PACKET PO ONE (16:15)
--- NOTE | 2020-11-01 18:24 | NUR ---
End of shift note Patient S/P US guided thoracentesis. fluids sent to lab, Patient drained 960ml, no c/o of pain/discomfort noted. Patient right shoulder dislocation seen in chest xray. MD Jiang and LUIS ARMANDO Estevez notified. will continue monitor
[2020-11-01 20:33] VITALS: BP 126/60
--- NOTE | 2020-11-01 20:45 | NUR ---
Patient awake and able to make needs known, O2 at 3LPM via Nc saturating at 92%.No s/s of distress noted.Iv on right FA .Administered IV ATb as ordered. No a/r noted.Patient incontinent to both B&B .Bm x1.Changed and repositioned patient gently d/t rt shoulder dislocation.Denies pain at this time.VSS .Will continue to monitor.
[2020-11-01] MEDS: TAMSULOSIN HCL 0.4 MG CAP.SR.24H PO SCH (21:14)
[2020-11-02] MEDS: IPRATROPIUM BROMIDE 0.5 MG/2.5 ML NEBU NEB SCH ×4 (01:04→19:28)
[2020-11-02 04:31] VITALS: BP 129/58
[2020-11-02] MEDS: ENSURE WITH FIBER 237 ML LIQUID (CHOCOLATE) PO SCH ×3 (06:27→22:19)
[2020-11-02] MEDS: PANTOPRAZOLE SODIUM 40 MG TABLET.DR PO SCH (06:28)
[2020-11-02 06:50] LABS: HEMATOCRIT 23.5 % (36.7-47.1); MEAN CORPUSCULAR HEMOGLOBIN 29.8 uug (23.8-33.4); MEAN CORPUSCULAR VOLUME 93.5 fL (73.0-96.2); PLATELET COUNT (AUTO) 146 K/uL (152-348)
[2020-11-02 07:12] LABS: CREATININE 1.3 mg/dL (0.6-1.3); POTASSIUM 4.5 mmol/L (3.5-5.1)
[2020-11-02 07:17] LABS: MAGNESIUM 1.9 mg/dL (1.8-2.4); PHOSPHOROUS 2.8 mg/dL (2.5-4.9)
--- NOTE | 2020-11-02 08:00 | NUR ---
AWAKE ALERT AND VERBALLY RESPONSIVE, NO SS OF ACUTE PAIN OR DISTRESS. O2 AT 3L NC SATURATING 96%. CONTINUE P-ASHLEY OF CARE ORDERED
[2020-11-02] MEDS: CALCIUM CARBONATE 500 MG TABLET PO SCH ×2 (09:32→21:49)
[2020-11-02] MEDS: DILTIAZEM HCL CD 120 MG CAP.SR.24H PO SCH (09:34)
[2020-11-02] MEDS: AMIODARONE HCL 200 MG TABLET PO SCH ×2 (09:35→21:49)
[2020-11-02] MEDS: FINASTERIDE 5 MG TABLET PO SCH (09:35)
[2020-11-02] MEDS: methylPREDNISolone SOD SUCC 40 MG/ML VIAL IV SCH ×2 (09:35→21:50)
[2020-11-02] MEDS: CALCITRIOL 0.25 MCG CAPSULE PO SCH ×2 (09:36→17:21)
[2020-11-02] MEDS: ENSURE ENLIVE (VAN) 240 ML LIQUID PO SCH ×3 (09:36→17:22)
[2020-11-02] MEDS: MEROPENEM 1 G in IV NORMAL SALINE 100 ML IV SCH ×2 (09:39→21:50)
[2020-11-02 12:00] VITALS: BP 143/73
--- NOTE | 2020-11-02 12:00 | NUR ---
NO ACUTE CHANGE FROM AM ASSESSMENT
[2020-11-02 15:30] VITALS: BP 148/74
--- NOTE | 2020-11-02 16:08 | NUR ---
SEEN BY DR RUST FOR ORTHO CONSULT SEE NOTES.
[2020-11-02] MEDS: LEVALBUTEROL HCL NEB 0.63 MG/3 ML NEBU NEB PRN (19:28)
[2020-11-02 20:04] VITALS: BP 128/76
[2020-11-02] MEDS: TAMSULOSIN HCL 0.4 MG CAP.SR.24H PO SCH (21:49)
[2020-11-03] MEDS: IPRATROPIUM BROMIDE 0.5 MG/2.5 ML NEBU NEB SCH ×4 (01:29→20:19)
[2020-11-03 04:04] VITALS: BP 129/71
[2020-11-03] MEDS: PANTOPRAZOLE SODIUM 40 MG TABLET.DR PO SCH (06:20)
[2020-11-03] MEDS: ENSURE WITH FIBER 237 ML LIQUID (CHOCOLATE) PO SCH ×3 (06:30→22:00)
[2020-11-03 06:38] LABS: HEMATOCRIT 26.4 % (36.7-47.1); MEAN CORPUSCULAR HEMOGLOBIN 29.6 uug (23.8-33.4); MEAN CORPUSCULAR VOLUME 93.2 fL (73.0-96.2); PLATELET COUNT (AUTO) 143 K/uL (152-348)
--- NOTE | 2020-11-03 06:55 | NUR ---
Patient slept intermittently through out the night.No c/o pain during the shift.Compliant with medication.Continue on Iv ATB as ordered.Iv on right forearm patent and intact. All needs anticipated and met accordingly. Will endorse to oncoming shift.
[2020-11-03 07:00] LABS: CREATININE 1.3 mg/dL (0.6-1.3); POTASSIUM 4.9 mmol/L (3.5-5.1)
--- NOTE | 2020-11-03 08:00 | NUR ---
awake alert and verbally responsive but somewhat confused to place and time, no ss pof pain or distress. observe
[2020-11-03] MEDS: MEROPENEM 1 G in IV NORMAL SALINE 100 ML IV SCH ×2 (08:48→20:46)
[2020-11-03] MEDS: CALCITRIOL 0.25 MCG CAPSULE PO SCH ×2 (08:49→17:12)
[2020-11-03] MEDS: FINASTERIDE 5 MG TABLET PO SCH (08:49)
[2020-11-03] MEDS: methylPREDNISolone SOD SUCC 40 MG/ML VIAL IV SCH (08:49)
[2020-11-03] MEDS: CALCIUM CARBONATE 500 MG TABLET PO SCH ×2 (08:50→20:47)
[2020-11-03] MEDS: DILTIAZEM HCL CD 120 MG CAP.SR.24H PO SCH (08:50)
[2020-11-03] MEDS: AMIODARONE HCL 200 MG TABLET PO SCH ×2 (08:50→20:47)
[2020-11-03] MEDS: ENSURE ENLIVE (VAN) 240 ML LIQUID PO SCH ×3 (08:51→17:12)
[2020-11-03] MEDS: Z GUARD REMEDY PASTE 57 GM TUBE TOP PRN (08:51)
[2020-11-03 11:51] VITALS: BP 156/89
--- NOTE | 2020-11-03 12:00 | NUR ---
no acute change from baseline assessment
--- NOTE | 2020-11-03 14:24 | NUR ---
seen by dr pickett for ID follow-up see notes
[2020-11-03 16:28] VITALS: BP 135/75
[2020-11-03] MEDS: ACETAMINOPHEN 325 MG TABLET PO PRN (17:22)
[2020-11-03] MEDS: LEVALBUTEROL HCL NEB 0.63 MG/3 ML NEBU NEB PRN (20:19)
[2020-11-03] MEDS: TAMSULOSIN HCL 0.4 MG CAP.SR.24H PO SCH (20:47)
[2020-11-03 20:50] VITALS: BP 132/74
[2020-11-04] MEDS: IPRATROPIUM BROMIDE 0.5 MG/2.5 ML NEBU NEB SCH ×4 (01:30→19:24)
[2020-11-04] MEDS: Z GUARD REMEDY PASTE 57 GM TUBE TOP PRN (04:10)
[2020-11-04 04:20] VITALS: BP 115/59
[2020-11-04] MEDS: PANTOPRAZOLE SODIUM 40 MG TABLET.DR PO SCH (06:01)
[2020-11-04] MEDS: ENSURE WITH FIBER 237 ML LIQUID (CHOCOLATE) PO SCH ×3 (06:01→22:20)
[2020-11-04 07:37] LABS: HEMATOCRIT 25.8 % (36.7-47.1); MEAN CORPUSCULAR HEMOGLOBIN 30.1 uug (23.8-33.4); MEAN CORPUSCULAR VOLUME 93.5 fL (73.0-96.2); PLATELET COUNT (AUTO) 116 K/uL (152-348)
[2020-11-04 07:44] LABS: CREATININE 1.2 mg/dL (0.6-1.3); POTASSIUM 5.1 mmol/L (3.5-5.1)
[2020-11-04] MEDS: ENSURE ENLIVE (VAN) 240 ML LIQUID PO SCH ×3 (09:07→16:40)
[2020-11-04] MEDS: methylPREDNISolone SOD SUCC 40 MG/ML VIAL IV SCH (09:07)
[2020-11-04] MEDS: CALCIUM CARBONATE 500 MG TABLET PO SCH (09:07)
[2020-11-04] MEDS: AMIODARONE HCL 200 MG TABLET PO SCH ×2 (09:08→20:39)
[2020-11-04] MEDS: FINASTERIDE 5 MG TABLET PO SCH (09:08)
[2020-11-04] MEDS: DILTIAZEM HCL CD 120 MG CAP.SR.24H PO SCH (09:09)
[2020-11-04] MEDS: CALCITRIOL 0.25 MCG CAPSULE PO SCH ×2 (09:13→16:41)
[2020-11-04] MEDS: MEROPENEM 1 G in IV NORMAL SALINE 100 ML IV SCH ×2 (09:14→20:39)
[2020-11-04 12:00] VITALS: BP 129/66
[2020-11-04 16:30] VITALS: BP 128/70
--- NOTE | 2020-11-04 17:13 | NUR ---
no acute changes noted during shift, patient is alert, oriented x3, no sob, continuous on o2, and breathing tx, still noted with congestion, and gurgles after eating, poor po intake, multiple bruises, low platelets, no active bleeding noted, tx ongoing for skin issues, repositioned and kept clean and dry, continue with plan of care, examined by LUIS ARMANDO Estevez, answered questioned and concerns of family. Addendum: 11/04/20 at 1717 by SIMON MONTESINOS RN, RN disregard above note wrong documentation.
[2020-11-04] MEDS: LEVALBUTEROL HCL NEB 0.63 MG/3 ML NEBU NEB PRN (19:25)
[2020-11-04 20:15] VITALS: BP 126/67
[2020-11-04] MEDS: TAMSULOSIN HCL 0.4 MG CAP.SR.24H PO SCH (20:39)
[2020-11-05] MEDS: IPRATROPIUM BROMIDE 0.5 MG/2.5 ML NEBU NEB SCH ×4 (01:30→20:12)
[2020-11-05 04:15] VITALS: BP 144/70
--- NOTE | 2020-11-05 05:11 | NUR ---
Pt slept intermittently throughout the night. No distress noted. On 3L NC sating at 94%. Safety and comfort provided. No other issues or concerns at this time, will endorse to day shift.
[2020-11-05] MEDS: PANTOPRAZOLE SODIUM 40 MG TABLET.DR PO SCH (06:21)
[2020-11-05] MEDS: ENSURE WITH FIBER 237 ML LIQUID (CHOCOLATE) PO SCH ×3 (06:22→21:07)
[2020-11-05 07:29] LABS: CARBON DIOXIDE 31 mmol/L (21-32); CHLORIDE 102 mmol/L (98-107); CREATININE 1.4 mg/dL (0.6-1.3); GLUCOSE 245 mg/dL (74-106); POTASSIUM 5.1 mmol/L (3.5-5.1); UREA NITROGEN, BLOOD 37 mg/dL (7-18)
[2020-11-05 07:39] LABS: HEMATOCRIT 25.5 % (36.7-47.1); MEAN CORPUSCULAR HEMOGLOBIN 29.4 uug (23.8-33.4); MEAN CORPUSCULAR VOLUME 93.2 fL (73.0-96.2); PLATELET COUNT (AUTO) 118 K/uL (152-348)
[2020-11-05] MEDS: methylPREDNISolone SOD SUCC 40 MG/ML VIAL IV SCH (08:05)
[2020-11-05] MEDS: MEROPENEM 1 G in IV NORMAL SALINE 100 ML IV SCH (08:05)
[2020-11-05] MEDS: CALCIUM CARBONATE 500 MG TABLET PO SCH (08:25)
[2020-11-05] MEDS: FINASTERIDE 5 MG TABLET PO SCH (08:25)
[2020-11-05] MEDS: DILTIAZEM HCL CD 120 MG CAP.SR.24H PO SCH (08:25)
[2020-11-05] MEDS: AMIODARONE HCL 200 MG TABLET PO SCH ×2 (08:25→20:12)
[2020-11-05] MEDS: CALCITRIOL 0.25 MCG CAPSULE PO SCH (08:25)
[2020-11-05] MEDS: ENSURE ENLIVE (VAN) 240 ML LIQUID PO SCH ×3 (08:36→17:15)
[2020-11-05 12:00] VITALS: BP 136/68
[2020-11-05] MEDS: CEFEPIME HCL 2 G in IV DEXTROSE 5% 100 ML IV SCH ×2 (12:12→23:11)
[2020-11-05] MEDS: NYSTATIN SUSPENSION 5 ML LIQUID UDC PO SCH ×3 (12:29→20:12)
--- NOTE | 2020-11-05 12:43 | NUR ---
pt is refusing to eat his lunch made aware
--- NOTE | 2020-11-05 15:40 | NUR ---
pt is feeling sob and his breathing is labored and o2 sat is 89 on 4 l nc made aware and new orders received noted and carried out
[2020-11-05 15:43] VITALS: BP 141/65
--- NOTE | 2020-11-05 16:00 | NUR ---
reg abg result dr Chaidez and Zenaida hylton notified
[2020-11-05 16:02] LABS: ABG BASE EXCESS 1.4 mmol/L; ABG HCO3 24.2 mmol/L; ABG PCO2 30.9 mmHg (35.0-45.0); ABG PH 7.512 (7.350-7.450); ABG PO2 108.2 mmHg (75.0-100.0); ABG SITE LEFT BRACHIAL; COHb 1.2 % (0.5-1.5); MetHb 0.2 % (0.0-1.5); O2Hb 96.9 % (94.0-97.0)
[2020-11-05 16:36] VITALS: BP 141/65
[2020-11-05 20:00] VITALS: BP 140/67
[2020-11-05] MEDS: TAMSULOSIN HCL 0.4 MG CAP.SR.24H PO SCH (20:12)
[2020-11-05] MEDS: ACETAMINOPHEN 325 MG TABLET PO PRN (23:07)
[2020-11-06] VITALS: BP 135/64
[2020-11-06] MEDS: IPRATROPIUM BROMIDE 0.5 MG/2.5 ML NEBU NEB SCH ×4 (02:12→19:13)
[2020-11-06 04:00] VITALS: BP 145/62
[2020-11-06] MEDS: ENSURE WITH FIBER 237 ML LIQUID (CHOCOLATE) PO SCH ×3 (05:05→22:08)
[2020-11-06] MEDS: PANTOPRAZOLE SODIUM 40 MG TABLET.DR PO SCH (06:03)
[2020-11-06] MEDS: LEVALBUTEROL HCL NEB 0.63 MG/3 ML NEBU NEB PRN ×2 (07:18→10:00)
[2020-11-06 07:26] LABS: HEMATOCRIT 25.3 % (36.7-47.1); MEAN CORPUSCULAR HEMOGLOBIN 29.4 uug (23.8-33.4); MEAN CORPUSCULAR VOLUME 93.4 fL (73.0-96.2); PLATELET COUNT (AUTO) 133 K/uL (152-348)
--- NOTE | 2020-11-06 07:34 | NUR ---
RECEIVED IN BED AWAKE AND RESPONSIVE. PATIENT RECEIVED ON 4LPM MASK BUT PATIENT HAD REMOVED IT. OCCASIONAL NONPRODUCTIVE COUGHING NOTED. NO ACUTE DISTRESS. REORIENTED PATIENT. MASK PUT BACK ON. REPOSITIONED PRN. WILL CONTINUE TO MONITOR.
[2020-11-06 07:43] LABS: CARBON DIOXIDE 32 mmol/L (21-32); CHLORIDE 105 mmol/L (98-107); CREATININE 1.5 mg/dL (0.6-1.3); GLUCOSE 239 mg/dL (74-106); POTASSIUM 4.9 mmol/L (3.5-5.1); UREA NITROGEN, BLOOD 42 mg/dL (7-18)
--- NOTE | 2020-11-06 08:53 | NUR ---
PATIENT ON 6LPM MASK. ALERT AND RESPONSIVE BUT NOTED WITH SHORTNESS OF BREATH SPO2 93%. PUT ON 15LPM NRB MASK SPO2 99%. WILL CONTINUE TO MONITOR. CHARGE NURSE AWARE. Addendum: 11/06/20 at 0900 by MALLORY LUNA RN ALSO MADE AWARE.
[2020-11-06] MEDS ORDERED: CALCITRIOL 0.25 MCG CAPSULE PO SCH (09:00)
[2020-11-06] MEDS: methylPREDNISolone SOD SUCC 40 MG/ML VIAL IV SCH ×2 (09:00→12:19)
--- NOTE | 2020-11-06 10:35 | NUR ---
DR. FERNANDEZ IN TO SEE THE PATIENT. RT IN THE ROOM.
--- NOTE | 2020-11-06 10:56 | NUR ---
SPRING COILING MACHINE SETTER GARCIA IN THE ROOM TO SEE PATIENT.
[2020-11-06] MEDS: DILTIAZEM HCL CD 120 MG CAP.SR.24H PO SCH (11:01)
[2020-11-06] MEDS: CALCIUM CARBONATE 500 MG TABLET PO SCH (11:02)
[2020-11-06] MEDS: NYSTATIN SUSPENSION 5 ML LIQUID UDC PO SCH ×4 (11:02→20:57)
[2020-11-06] MEDS: AMIODARONE HCL 200 MG TABLET PO SCH ×2 (11:02→20:57)
[2020-11-06] MEDS: ENSURE ENLIVE (VAN) 240 ML LIQUID PO SCH ×3 (11:02→17:00)
[2020-11-06] MEDS: FINASTERIDE 5 MG TABLET PO SCH (11:02)
[2020-11-06] MEDS: CEFEPIME HCL 2 G in IV DEXTROSE 5% 100 ML IV SCH (11:19)
[2020-11-06 11:30] VITALS: BP 113/44
--- NOTE | 2020-11-06 12:05 | NUR ---
PATIENT MORE CALM NOW. ON 10LPM SIMPLE MASK SPO2 NOTED 95%. WILL CONTINUE TO MONITOR.
--- NOTE | 2020-11-06 13:15 | NUR ---
AROUSABLE. PO MEDS NOT ADMINISTERED DUE TO EPISODES OF SOB. MD AWARE. WILL CONTINUE TO MONITOR.
--- NOTE | 2020-11-06 13:52 | NUR ---
ALERT AND RESPONSIVE. PATIENT WITH EPISODES OF REMOVING HIS MASK. EXPLAINED TO PATIENT RE ITS IMPORTANCE AND HE VERBALIZED UNDERSTANDING. WILL CONTINUE TO MONITOR.
--- NOTE | 2020-11-06 15:30 | NUR ---
PATIENT KEEPS REMOVING HIS MASK. PUT ON 5LPM NC. TOLERATING. SPO2 93%. JEWELRY BEARING MAKER GARCIA AWARE.
[2020-11-06 15:32] VITALS: BP 124/59
--- NOTE | 2020-11-06 19:03 | NUR ---
RESTING IN BED. ON 5 LPM NC. NO ACUTE DISTRESS. ON IV ATB GIVEN ORDERED. NO ADVERSE REACTION NOTED. IV REMAINS INTACT. REFUSED HIS MEALS TODAY. SLURRY TANK OPERATOR GARCIA ALREADY AWARE. NEEDS ATTENDED. KEPT COMFORTABLE. WILL ENDORSE ACCORDINGLY.
[2020-11-06 20:00] VITALS: BP 131/69
[2020-11-06] MEDS: TAMSULOSIN HCL 0.4 MG CAP.SR.24H PO SCH (20:56)
[2020-11-07] MEDS: CEFEPIME HCL 2 G in IV DEXTROSE 5% 100 ML IV SCH (00:04)
[2020-11-07] MEDS: IPRATROPIUM BROMIDE 0.5 MG/2.5 ML NEBU NEB SCH ×2 (00:55→07:35)
[2020-11-07 04:00] VITALS: BP 115/53
--- NOTE | 2020-11-07 05:01 | NUR ---
Patient slept intermittently.Alert responsive to verbal and tactile stimuli. Continue on O2 at 5 LPM via NC saturating at 92-93%.HOB elevated. Aspiration precaution observed at all times.Due meds given. Iv on left FA patent and intact.Adm.Iv ATB as ordered.No a/R noted. Breathing tx given by RT.Safety measures in place.
[2020-11-07] MEDS: PANTOPRAZOLE SODIUM 40 MG TABLET.DR PO SCH (06:21)
[2020-11-07] MEDS: ENSURE WITH FIBER 237 ML LIQUID (CHOCOLATE) PO SCH (06:22)
[2020-11-07] MEDS: LEVALBUTEROL HCL NEB 0.63 MG/3 ML NEBU NEB PRN (07:35)
--- NOTE | 2020-11-07 07:35 | NUR ---
Received patient in bed, hob elevated receiving routine breathing tx. Arousable to stimuli, nodded slightly when called his name. No respiratory distress noted. Iv intact and patent. Safety measures in place. Kept comfortable. Call light within reach.
--- NOTE | 2020-11-07 07:52 | NUR ---
Found patient in bed, not responsive no pulse no breathing. VS not appreciated. Patient is full code. Chito franco called, CPR started. Chito blue team arrived. CPR ongoing, ER doctor intubated patient, protocol followed for code blue patient. Please refer to Code Blue Record for details. 08- Chito blue terminated and pronounced by Dr. Garsia. Assigned hospitalist notified. Dr. Rodriguez computer security coordinator at bedside.
[2020-11-07 08:07] LABS: CARBON DIOXIDE 25 mmol/L (21-32); CHLORIDE 106 mmol/L (98-107); CREATININE 1.4 mg/dL (0.6-1.3); GLUCOSE 224 mg/dL (74-106); MAGNESIUM 2.2 mg/dL (1.8-2.4); POTASSIUM 5.4 mmol/L (3.5-5.1); UREA NITROGEN, BLOOD 43 mg/dL (7-18)
--- NOTE | 2020-11-07 08:50 | NUR ---
[facility] notified. Patient is not a candidate for donor per [facility].
--- NOTE | 2020-11-07 09:00 | NUR ---
Post mortem care rendered. Belongings are inventoried and sent with the body. Patient will be kept in the morgue per protocol.
--- NOTE | 2020-11-07 09:00 | NUR ---
Patient's belongings are sent with the patient's body. Purchasing Supervisor and charge nurse aware.
[2020-11-07 09:25] LABS: HEMATOCRIT 24.8 % (36.7-47.1); MEAN CORPUSCULAR HEMOGLOBIN 30.2 uug (23.8-33.4); MEAN CORPUSCULAR VOLUME 100.2 fL (73.0-96.2); PLATELET COUNT (AUTO) 177 K/uL (152-348)
--- NOTE | 2020-11-07 10:08 | NUR ---
Robert Davila notified by hospitalist. Hospitalist also left vm for son Danilo.
[2020-11-07 14:43] LABS: LYMPHOCYTES % (MANUAL) 5 % (20-40); MONOCYTES % (MANUAL) 5 % (2-10); NEUTROPHILS % (MANUAL) 90 % (42-75)
[2020-11-07] MEDS ORDERED: SODIUM BICARBONATE 8.4% 50 MEQ/50 ML DISP.SYRIN IV ONE (16:01)
[2020-11-07] MEDS ORDERED: CALCIUM CHLORIDE 1 GM/10 ML DISP.SYRIN IV ONE (16:01)
[2020-11-07] MEDS ORDERED: EPINEPHRINE 1:10,000 1 MG/10 ML DISP.SYRIN IV ONE (16:01)
--- NOTE | 2020-11-07 16:30 | NUR ---
Managed Services Consultant note: This MAKE UP ARRANGER informed by Cut Off Operator Scorer Jonathon that patient's daughter was inquiring about homes/mortuaries in the area, as she lives out of town. This MAKE UP ARRANGER called patient's daughter [phone]. Mray asked for information pertaining to homes and mortuaries. This MAKE UP ARRANGER emailed Mary a list from the hospital resource directory, email address [email or web address]
== END 2020-11-07 16:02 | DRG 180 ==
LOC: ER 11:03 → TELE3 13:25 → TELE-TD3 10-29 09:19 → TELE3 10-30 15:01 → MEDSURG3 10-31 10:58
PROVIDERS: ADMIT Student in an Organized Health Care Education/Training Program; ATTEND Nurse Practitioner Family
PROC: 0W993ZZ Drainage of Right Pleural Cavity, Percutaneous Approach (ICD-10-PCS; principal; 2020-10-28)
PROC: 0W993ZZ Drainage of Right Pleural Cavity, Percutaneous Approach (ICD-10-PCS; 2020-11-01)
PROC: 5A12012 Performance of Cardiac Output, Single, Manual (ICD-10-PCS; 2020-11-07)
PROC: 0BH18EZ Insertion of Endotracheal Airway into Trachea, Via Natural or Artificial Opening Endoscopic (ICD-10-PCS; 2020-11-07)
DX: C34.90 Malignant neoplasm of unspecified part of unspecified bronchus or lung (principal); J15.6 Pneumonia due to other Gram-negative bacteria; N17.0 Acute kidney failure with tubular necrosis; J96.01 Acute respiratory failure with hypoxia; A41.9 Sepsis, unspecified organism; E43 Unspecified severe protein-calorie malnutrition; J91.0 Malignant pleural effusion; C79.51 Secondary malignant neoplasm of bone; E87.4 Mixed disorder of acid-base balance; E87.2 Acidosis; B37.0 Candidal stomatitis; I31.3 Pericardial effusion (noninflammatory); J44.0 Chronic obstructive pulmonary disease with (acute) lower respiratory infection; E83.51 Hypocalcemia; Z88.0 Allergy status to penicillin; G89.3 Neoplasm related pain (acute) (chronic); M54.9 Dorsalgia, unspecified; T84.028D Dislocation of other internal joint prosthesis, subsequent encounter; N40.0 Benign prostatic hyperplasia without lower urinary tract symptoms; D63.8 Anemia in other chronic diseases classified elsewhere; D69.6 Thrombocytopenia, unspecified; E83.39 Other disorders of phosphorus metabolism; E86.0 Dehydration; E87.5 Hyperkalemia; G25.0 Essential tremor; Z85.46 Personal history of malignant neoplasm of prostate; I48.0 Paroxysmal atrial fibrillation; Z87.01 Personal history of pneumonia (recurrent); Z87.891 Personal history of nicotine dependence; M10.9 Gout, unspecified; Y83.8 Other surgical procedures as the cause of abnormal reaction of the patient, or of later complication, without mention of misadventure at the time of the procedure; Y92.89 Other specified places as the place of occurrence of the external cause; Z79.899 Other long term (current) drug therapy; N40.1 Benign prostatic hyperplasia with lower urinary tract symptoms; R33.8 Other retention of urine; R53.1 Weakness; Z20.822 Contact with and (suspected) exposure to COVID-19; E87.6 Hypokalemia; I10 Essential (primary) hypertension; Y79.2 Prosthetic and other implants, materials and accessory orthopedic devices associated with adverse incidents; Z68.24 Body mass index [BMI] 24.0-24.9, adult
CPT/HCPCS: 32555; 36415; 36600; 70030-TC; 71045; 71250; 73030; 76770; 82378; 82652; 82784; 83550; 83605; 83615; 83690; 83735; 83970; 83986; 84100; 84155; 84156; 84165; 84300; 84443; 85025; 85610; 85730; 86334; 87040; 87070; 87205; 93005; 93307; 93880; 94640; 97161; A4663; A6209; G0378; J0171; J0282; J0610; J0692; J1170; J1940; J1956; J2185; J2405; J2920; J2930; J3475; J3490; J3590; J7030; J7060; J7614